=== PATIENT | female | born 1940 | race Caucasian/White ===

== ENCOUNTER → 2019-12-02 14:51 | Outpatient (BNVA) | payer MEDICARE, MEDICAID, SELFPAY | PROVIDERS: Family Provider Internal Medicine; PCP Internal Medicine; Visit Provider Orthopaedic Surgery | DX: Z96.611 Presence of right artificial shoulder joint (principal) | CPT/HCPCS: 73060 ==

== ENCOUNTER → 2019-12-23 16:23 | Outpatient (BNVA) | payer MEDICARE, MEDICAID, SELFPAY | PROVIDERS: Family Provider Internal Medicine; PCP Internal Medicine; Visit Provider Internal Medicine | DX: E03.9 Hypothyroidism, unspecified (principal); K75.4 Autoimmune hepatitis; I25.10 Atherosclerotic heart disease of native coronary artery without angina pectoris; K21.9 Gastro-esophageal reflux disease without esophagitis | CPT/HCPCS: 84443 ==

== ENCOUNTER → 2020-07-31 09:17 | Outpatient (BNVA) | payer MEDICARE, MEDICAID, SELFPAY | PROVIDERS: Family Provider Internal Medicine; PCP Internal Medicine; Visit Provider Nurse Practitioner Family | DX: I10 Essential (primary) hypertension (principal); E78.5 Hyperlipidemia, unspecified; E03.9 Hypothyroidism, unspecified | CPT/HCPCS: 80053; 80061; 84443 ==

== ENCOUNTER → 2020-12-03 14:25 | Outpatient (BNVA) | payer MEDICARE, MEDICAID, SELFPAY | PROVIDERS: Family Provider Internal Medicine; PCP Internal Medicine; Visit Provider Nurse Practitioner Family | DX: Z20.828 Contact with and (suspected) exposure to other viral communicable diseases (principal); R05 Cough | CPT/HCPCS: 87635 ==

== ENCOUNTER → 2021-02-11 10:00 | Outpatient (BNVA) | payer MEDICARE, MEDICAID, SELFPAY | PROVIDERS: Family Provider Internal Medicine; PCP Internal Medicine; Visit Provider Internal Medicine | DX: K75.4 Autoimmune hepatitis (principal); I10 Essential (primary) hypertension; E03.9 Hypothyroidism, unspecified; Z79.899 Other long term (current) drug therapy | CPT/HCPCS: 80053; 82105; 85025; 85651 ==

== ENCOUNTER → 2021-03-01 11:02 | Outpatient (BNVA) | payer MEDICARE, MEDICAID, SELFPAY | PROVIDERS: Family Provider Internal Medicine; PCP Internal Medicine; Visit Provider Internal Medicine | DX: D64.9 Anemia, unspecified (principal) | CPT/HCPCS: 82607; 83550; 85045 ==

== ENCOUNTER → 2021-08-16 13:57 | Outpatient (BNVA) | payer MEDICARE, MEDICAID, SELFPAY | PROVIDERS: Family Provider Internal Medicine; PCP Internal Medicine; Visit Provider Internal Medicine | DX: K75.4 Autoimmune hepatitis (principal); D64.9 Anemia, unspecified | CPT/HCPCS: 80053; 82607; 82746; 83550; 85651 ==

== ENCOUNTER → 2022-06-07 08:59 | Outpatient (BNVA) | payer MEDICARE, MEDICAID, SELFPAY | PROVIDERS: Family Provider Internal Medicine; PCP Internal Medicine; Visit Provider Nurse Practitioner Family | DX: D64.9 Anemia, unspecified (principal); I10 Essential (primary) hypertension; E03.9 Hypothyroidism, unspecified; E78.5 Hyperlipidemia, unspecified; R53.83 Other fatigue; E55.9 Vitamin D deficiency, unspecified | CPT/HCPCS: 80053; 80061; 82306; 82607; 83550; 84443; 85025 ==

== ENCOUNTER → 2022-06-30 13:52 | Outpatient (BNVA) | payer MEDICARE, MEDICAID, SELFPAY | PROVIDERS: Family Provider Internal Medicine; PCP Internal Medicine; Visit Provider Internal Medicine | DX: I25.10 Atherosclerotic heart disease of native coronary artery without angina pectoris (principal); Z78.9 Other specified health status; I10 Essential (primary) hypertension | CPT/HCPCS: 99213 ==

== ENCOUNTER → 2022-08-24 13:12 | Outpatient (BNVA) | payer MEDICARE, MEDICAID, SELFPAY | PROVIDERS: Family Provider Internal Medicine; PCP Internal Medicine; Visit Provider Nurse Practitioner Family | DX: E55.9 Vitamin D deficiency, unspecified (principal) | CPT/HCPCS: 82306 ==

== ENCOUNTER → 2022-12-28 11:11 | Outpatient (BNVA) | payer MEDICARE, MEDICAID, SELFPAY | PROVIDERS: Family Provider Internal Medicine; PCP Internal Medicine; Visit Provider Nurse Practitioner Family | DX: Z79.899 Other long term (current) drug therapy (principal); I10 Essential (primary) hypertension; R53.83 Other fatigue | CPT/HCPCS: 80053; 80061; 82306; 85025 ==

== ENCOUNTER → 2022-12-29 14:57 | Outpatient (BNVA) | payer MEDICARE, MEDICAID, SELFPAY | PROVIDERS: Family Provider Internal Medicine; PCP Nurse Practitioner Family; Visit Provider Internal Medicine | DX: I25.10 Atherosclerotic heart disease of native coronary artery without angina pectoris (principal); Z78.9 Other specified health status; I10 Essential (primary) hypertension | CPT/HCPCS: 99214 ==

== ENCOUNTER → 2023-06-02 10:02 | Outpatient (BNVA) | payer MEDICARE, MEDICAID, SELFPAY | PROVIDERS: Family Provider Internal Medicine; PCP Nurse Practitioner Family; Visit Provider Nurse Practitioner Family | DX: K75.4 Autoimmune hepatitis (principal) | CPT/HCPCS: 85025; 86705; 86706; 86709; 86803; 87340 ==

== ENCOUNTER → 2023-06-29 14:14 | Outpatient (BNVA) | payer MEDICARE, MEDICAID, SELFPAY | PROVIDERS: Family Provider Internal Medicine; PCP Nurse Practitioner Family; Visit Provider Internal Medicine | DX: I25.10 Atherosclerotic heart disease of native coronary artery without angina pectoris (principal); Z78.9 Other specified health status; I10 Essential (primary) hypertension | CPT/HCPCS: 99214 ==

== ENCOUNTER → 2023-07-04 11:54 | Outpatient (BNVA) | payer MEDICARE, MEDICAID, SELFPAY | PROVIDERS: Family Provider Internal Medicine; PCP Nurse Practitioner Family; Visit Provider Nurse Practitioner Family | DX: E55.9 Vitamin D deficiency, unspecified (principal); E03.9 Hypothyroidism, unspecified; D64.9 Anemia, unspecified | CPT/HCPCS: 82306; 84443; 85025 ==

== ENCOUNTER 2023-08-17 09:00 | Outpatient (CLI) | payer MEDICARE, MEDICAID, SELFPAY ==
--- NOTE | 2023-08-17 09:27 | XR_ITS ---
WS: [id number] Chest 2 views, 08/17/2023 Clinical Data: R05.9 - Cough, unspecified Comparison: Portable chest, 03/18/2015 Findings: There is minimal patchy opacity in the periphery of the left upper lobe which could represe nt pneumonia. There is a patchy opacity extending from the left hilum inferiorly into the left lower lobe which could represent atelectasis or pneumonia. No nodules, masses or effusions are seen. The he art is normal. The pulmonary vascularity is not increased. No pneumothorax is seen. There is a hiatal hernia behind the heart. 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 The aortic arch shows calci fication and there is tortuosity of the descending thoracic aorta. There is a reverse right shoulder arthroplasty. There are clips in the right upper quadrant from a cholecystectomy. Impression: 1. Minimal patchy peripheral left opacity in left upper lobe which could represent pneumonia. 2. Patchy opacity extending from the left hilum inferiorly into the left lower lobe which could repre sent atelectasis and/or pneumonia. 3. Eventration of the right diaphragm. 4. Hiatal hernia behind the heart.
--- NOTE | 2023-08-17 09:30 | US_ITS ---
WS: [id number] RIGHT UPPER QUADRANT ULTRASOUND HISTORY: R10.11 - Right upper quadrant pain COMPARISON: 08/12/2011 Liver: 10.3 cm in length. Small shrunken liver. Coarse echotexture throughout with no mass. Surface o f the liver is irregular. Portal Vein: Normal hepatopetal flow with monophasic waveform. Gallbladder: Diffuse gallbladder wall thickening and cholelithiasis. Gallbladder wall measures up to 5.8 mm. Gallbladder wall thickening is probably due to the adjacent ascites and a cirrhotic appearing liver. CBD: 0.3 cm Pancreas: Completely obscured. Right kidney: 10.2 cm in length. Normal size and echogenicity. No hydronephrosis or mass. Aorta and IVC: Unremarkable abdominal aorta and IVC. Moderate amount of ascites within all 4 quadrants. IMPRESSION: 1. Shrunken abnormal liver. Most consistent with cirrhosis. 2. Moderate amount of ascites. 3. Diffuse gallbladder wall thickening is probably related to hepatocellular disease in the ascites. There is also cholelithiasis. 4. No bile duct dilatation.
== END 2023-08-17 09:01 | disposition home or self-care (01) ==
PROVIDERS: PCP Nurse Practitioner Family; Visit Provider Nurse Practitioner Family
DX: R10.11 Right upper quadrant pain (principal); R05.9 Cough, unspecified
CPT/HCPCS: 71046; 76705

== ENCOUNTER → 2023-08-29 11:14 | Outpatient (BNVA) | payer MEDICARE, MEDICAID, SELFPAY | PROVIDERS: PCP Nurse Practitioner Family; Referring Provider Nurse Practitioner Family; Visit Provider Surgery | DX: K80.20 Calculus of gallbladder without cholecystitis without obstruction (principal); K21.9 Gastro-esophageal reflux disease without esophagitis; K75.4 Autoimmune hepatitis; R10.9 Unspecified abdominal pain | CPT/HCPCS: 99203 ==

== ENCOUNTER → 2023-10-17 10:07 | Outpatient (BNVA) | payer MEDICARE, MEDICAID, SELFPAY | PROVIDERS: PCP Nurse Practitioner Family; Visit Provider Nurse Practitioner Family | DX: R10.9 Unspecified abdominal pain (principal); I10 Essential (primary) hypertension; E03.9 Hypothyroidism, unspecified; E78.5 Hyperlipidemia, unspecified | CPT/HCPCS: 80053; 84443 ==

== ENCOUNTER 2023-10-27 12:02 | Outpatient (CLI) | payer MEDICARE, MEDICAID, SELFPAY ==
[2023-10-27] MEDS: iohexol 350 mg/mL 500 mL Btl (per mL) PO (13:07)
--- NOTE | 2023-10-27 13:30 | CT_ITS ---
WS: [id number] CT ABDOMEN WITHOUT CONTRAST HISTORY: R10.9 - Unspecified abdominal pain Contiguous single phase 5 mm axial imaging performed to the abdomen. Oral contrast has been provided. Coronal and sagittal reformats are submitted. All CT scans at [facility] use at least one of these dose optimization techniques: automated exposure control; mA and/or kV adjustment per patient size (includes targeted exams where dose is matched to clinical indication); or iterative reconstruct ion. IV CONTRAST: None Oral contrast: Yes. DLP: 823.61 mGy.cm COMPARISON: 01/15/2019, gallbladder ultrasound 08/17/2023 Lower thorax: Moderate size hiatal hernia. Heart is normal size. Fluid adjacent to the distal esophag us. Liver/biliary system: Shrunken cirrhotic liver. Gallbladder: Cholelithiasis. No evidence for acute cholecystitis Pancreas: Atrophied pancreas. Spleen: Enlarged spleen measuring 15.3 cm in length. Adrenal glands: Normal. Right kidney: Normal. Left kidney: Normal. Aorta: Mild atherosclerosis with no aneurysm. Lymphadenopathy: None. Free fluid: Large amount of ascites throughout the abdomen. There is also mesenteric and soft tissue edema. GI tract: As visualized through the abdomen no obstruction. Abdominal wall: Soft tissue anasarca. Visualized osseous structures: Unremarkable. IMPRESSION: 1. Large amount of ascites noted within the peritoneal cavity of the abdomen. Ascites is new since . A small amount of ascites was identified on the gallbladder ultrasound 08/17/2023. 2. Cirrhotic appearing liver. 3. Diffuse soft tissue edema and anasarca. 4. Splenomegaly. Findings of the portal venous hypertension are present.
== END 2023-10-27 12:03 | disposition home or self-care (01) ==
LOC: RAD 12:03
PROVIDERS: PCP Nurse Practitioner Family; Visit Provider Nurse Practitioner Family
DX: R18.8 Other ascites (principal); R10.9 Unspecified abdominal pain; K80.20 Calculus of gallbladder without cholecystitis without obstruction; R16.1 Splenomegaly, not elsewhere classified; K76.6 Portal hypertension; K74.60 Unspecified cirrhosis of liver
CPT/HCPCS: 74150; Q9967

== ENCOUNTER → 2023-12-25 15:38 | Outpatient (BNVA) | payer MEDICARE, MEDICAID, SELFPAY | PROVIDERS: PCP Nurse Practitioner Family; Visit Provider Nurse Practitioner Family | DX: R53.83 Other fatigue (principal); I10 Essential (primary) hypertension; E03.9 Hypothyroidism, unspecified | CPT/HCPCS: 80053; 84443; 85025 ==

== ENCOUNTER → 2024-01-29 14:00 | Outpatient (BNVA) | payer MEDICARE, MEDICAID, SELFPAY | PROVIDERS: PCP Nurse Practitioner Family; Visit Provider Nurse Practitioner Family | DX: I10 Essential (primary) hypertension (principal) | CPT/HCPCS: 80053 ==

== ENCOUNTER 2024-05-04 09:23 | Inpatient (IN) | payer MEDICARE, MEDICAID, SELFPAY ==
[2024-05-04] VITALS (43 sets, daily range): BP systolic 79–144; BP diastolic 39–76; PULSE 56–90; RESP 15–25; TEMP 35.8–36.4; O2SAT 72–100; BMI 20.5
--- NOTE | 2024-05-04 09:57 | CTR_ITS ---
PROCEDURE INFORMATION: Exam: CT Head Without Contrast Exam date and time: 05/04/2024 10:48 AM Age: 84 years old Clinical indication: Altered mental status/memory loss; Age related cognitive decline; Additional info: AMS TECHNIQUE: Imaging protocol: Computed tomography of the head without contrast. Radiation optimization: All CT scans at this facility use at least one of these dose optimization techniques: automated exposure control; mA and/or kV adjustment per patient size (includes targeted exams where dose is matched to clinical indication); or iterative reconstruction. COMPARISON: No relevant prior studies available. RADIATION DOSE METRICS: Total DLP (mGy-cm): 969.18 FINDINGS: Brain: No acute hemorrhage identified. No large territorial areas of hypoattenuation concerning for ischemic infarct identified. No intracranial mass effect. Mild diffuse cerebral atrophy, consistent with patient's age. Cerebral ventricles: The ventricles are within normal limits. Paranasal sinuses: The visualized sinuses are unremarkable. Mastoid air cells: The visualized mastoid air cells are well aerated. Bones: Unremarkable. No acute fracture. Soft tissues: Unremarkable. CT/CT head wo con* [id number] IMPRESSION: No acute intracranial abnormality.
--- NOTE | 2024-05-04 09:57 | XRR_ITS ---
PROCEDURE INFORMATION: Exam: XR Chest Exam date and time: 05/04/2024 10:51 AM Age: 84 years old Clinical indication: Cough and dyspnea; Additional info: Dyspnea/cough TECHNIQUE: Imaging protocol: Radiologic exam of the chest. Views: 1 view. COMPARISON: 1. CR XR chest 2V* [id number] 08/17/2023 9:[address] abdomen wo con [id number] 10/27/2023 1:02 PM FINDINGS: Lungs: Emphysematous disease. No significant airspace consolidation concerning for pneumonia. Pleural spaces: No pneumothorax. No large pleural effusion. Heart/Mediastinum: Large hiatal hernia again noted. Diaphragm: Mild elevation of the right hemidiaphragm again noted. Bones/joints: Right shoulder arthroplasty noted. XR/XR chest 1V portable [id number] IMPRESSION: 1. Emphysematous disease. 2. No significant airspace consolidation concerning for pneumonia.
--- NOTE | 2024-05-04 10:22 | W.ED.AMS ---
HPI - Altered Mental Status General: Chief Complaint: Altered Mental Status Stated Complaint: loss of appetite, general weakness, incoherence Time Seen by Provider: 05/04/24 09:46 Source: patient and family Mode of arrival: wheelchair History of Present Illness: 84-year-old female presents emergency room generalized weakness and confusion. She will follow simple commands but does not really spontaneously offer answer to questions or provide any history family associated with her provide answers 2 weeks ago she was hospitalized she had significant amount of ascites that was drained she also sounds like she had some congestive heart failure initially she was admitted at [facility] and then was transferred to [facility]. She had a pleural effusion I will treated with a chest tube which was subsequently removed. She had paracentesis according to the daughter who is with her that had taken several liters off the abdomen. She has autoimmune hepatitis she is on spironolactone which was recently increased. MD complaint: altered mental status and confusion Context: liver disease (Autoimmune cirrhosis) Associated symptoms: Deny auditory hallucinations or visual hallucinations Review of Systems Const: Denies: fever(s) or chills Card: Denies: chest pain Resp: Denies: dyspnea GI: Denies: abdominal pain : Denies: dysuria, urinary frequency or urinary urgency Musc: Denies: neck pain or back pain Skin/Breast: Denies: rash Psych: Denies: visual hallucinations or auditory hallucinations [facility] ED PFSH: Medical History Dyspepsia Sinus bradycardia Leg cramps ETD (eustachian tube dysfunction) Arthritis Hyponatremia Closed fracture of proximal end of right humerus with routine healing Anxiety Statin intolerance Essential hypertension GERD (gastroesophageal reflux disease) Hypercholesteremia Hypothyroidism ASHD (arteriosclerotic heart disease) Surgical History Hx of colonoscopy History of right shoulder replacement H/O coronary angioplasty H/O: hysterectomy Family History Other CAD (coronary artery disease) Cancer Family history of premature coronary artery disease Denies family history of Diabetes Clotting disorder Dementia Hyperlipidemia Psychiatric illness Chronic kidney disease (CKD) Suicide Anesthesia complication Bleeding disorder Lung disease Hypertension Stroke Social History Smoking and tobacco/nicotine status: never used tobacco/nicotine Alcohol intake: never Substance/Drug Use: never Physical Exam Const: GENERAL APPEARANCE: cooperative and comfortable ORIENTATION/CONSCIOUSNESS: Yes awake and Yes confused HENMT: COMMON NORMALS: normocephalic, atraumatic and hearing grossly normal bilaterally HEAD & SCALP: normocephalic and atraumatic Resp: COMMON NORMALS: normal respiratory effort, No retractions, No use of accessory muscles and clear to auscultation bilaterally AUSCULTATION: clear to auscultation bilaterally Cardio: COMMON NORMALS: regular rate, regular rhythm and No murmurs present (Cardio) RATE: regular rate RHYTHM: regular rhythm GI: COMMON NORMALS: Soft to palpation and No hepatosplenomegaly present AUSCULTATION: Yes normoactive bowel sounds PALPATION: Yes Soft to palpation, No Tenderness to palpation present (GI), No Guarding due to palpation present (GI) and Yes No hepatosplenomegaly present Extremity: COMMON NORMALS: normal to inspection, capillary refill normal, no clubbing, cyanosis or edema, no calf tenderness and no pedal edema Skin: COMMON NORMALS: no rashes or lesions noted GENERAL SKIN EXAM: no rashes or lesions noted Procedures Central Line Placement Right SC: Patient Placed on Monitor/Pulse Ox: Yes MD Prep: mask, gown and gloves Central Line Prep: Chlorhexidine scrub Local Anesthetic: lidocaine 1% Amount of anesthesia used (mL): 3 Ultrasound Used for Placement: Yes Central Line Lumen Inserted: triple Post Procedure: sutured in place, good blood return, all ports aspirated, flushed, capped and sterile dressing applied Post Procedure X-Ray: tip of catheter in good position and no pneumothorax seen Patient Tolerated Procedure: well Complications: none Procedural Sedation Indication: other (Central line placement patient is encephalopathic) ASA Class: I Preparation: residential monitor applied, pulse oximeter, capnometry used, supplemental O2 applied and suction/airway equipment at bedside Ketamine: IV Ketamine dose (mg): 100 Complications: hypoxia Interventions: oxygen applied and airway repositioned Additional Comments: Patient transiently hypoxic she was in a supine slightly Trendelenburg position for the scheduled while you are about to start she was noted to become hypoxic supplemental oxygen support her airway was repositioned and oropharyngeal airway placed her sats remained normal she did not require any ventilatory assistance. Post procedure recovered without any further hypoxia Course Vital Signs: Vital signs: Vital Signs Temperature 96.5 F L 05/04/24 09:55 Pulse Rate 68 05/04/24 16:00 Respiratory Rate 17 05/04/24 16:00 Blood Pressure 102/50 05/04/24 15:00 Pulse Oximetry 99 05/04/24 16:00 Oxygen Delivery Me thod Room Air 05/04/24 09:55 MDM - Altered Mental Status Medical Decision Making Patient comes in with sepsis uncertain etiology recently she had a thoracentesis. In talking with the family initially thought they also described her having a paracentesis. We later discovered this was not the case they just had a thoracentesis according to the daughter were getting the old records to confirm. She does have known liver disease she has no abdominal distention at this time. Start empiric antibiotics. She has received fluid bolus and cautious to give her any further because she of her recent hospitalization with pleural effusion. She has been started on Levophed Central line was placed after she continued to have hypotension despite fluid bolus. EKG did not show any abnormality ammonia level is normal troponin is trended negative. Claudy Omalley admitted to the ICU Medical Records I reviewed the patient's medical records. Lab Data I reviewed the patient's lab results. 05/04/24 10:35 05/04/24 10:[address] 05/04/24 09:57 IMPRESSION: No acute intracranial abnormality. Abdomen/Pelvis CT 05/04/24 13:20 IMPRESSION: 1. Rectal fecal impaction. 2. Hepatic cirrhosis and splenomegaly. 3. Partially imaged small right pleural effusion. 4. Large hiatus hernia with most of the stomach located within the chest. Also within the hernia multiple soft tissue densities measuring up to 3.5 cm. These soft tissue densities could represent lymphadenopathy but cannot be further characterized on noncontrast imaging. Consider CT abdomen and pelvis with oral and IV contrast. 5. Cholelithiasis but no evidence of cholecystitis. 6. Calcifications projecting over the distal portal vein. A finding of indeterminate clinical significance and can be further evaluated on the recommended CT abdomen and pelvis with oral and IV contrast. 7. Significantly distended urinary bladder. 8. Bulky bilateral inguinal and pelvic sidewall/iliac chain lymphadenopathy. Consider lymphoma. Chest X-Ray 05/04/24 15:47 IMPRESSION: The new right subclavian central venous catheter is in good position. No pneumothorax. Laboratory Results WBC 4.94 10^3/uL (3.29-11.43) 05/04/24 10:35 RBC 3.80 10^6/uL (3.85-5.65) L 05/04/24 10:35 Hgb 14.60 g/dL (11.27-16.99) 05/04/24 10:35 Hct 42.5 % (36-47) 05/04/24 10:35 MCV 111.8 fl (85-98) H 05/04/24 10:35 MCH 38.4 pg (27-33) H 05/04/24 10:35 MCHC 34.4 g/dL (30-55) 05/04/24 10:35 RDW 17.2 % (12.1-15.1) H 05/04/24 10:35 Plt Count 130 10^3/cmm (157-399) L 05/04/24 10:35 MPV 10.1 fL (7.4-10.4) 05/04/24 10:35 Neut % (Auto) 63.0 % 05/04/24 10:35 Lymph % (Auto) 18.8 % 05/04/24 10:35 [place] % (Auto) 16.2 % 05/04/24 10:35 Eos % (Auto) 0.6 % 05/04/24 10:35 Baso % (Auto) 0.6 % 05/04/24 10:35 Neut # (Auto) 3.11 10^3/uL (1.8-7.7) 05/04/24 10:35 Lymph # (Auto) 0.9 10^3/uL (0.8-4.8) 05/04/24 10:35 [place] # (Auto) 0.8 10^3/uL (0.2-0.9) 05/04/24 10:35 Eos # (Auto) 0.0 10^3/uL (0.0-0.8) 05/04/24 10:35 Baso # (Auto) 0.0 10^3/uL (0.0-0.1) 05/04/24 10:35 Nucleated RBC % (auto) 0.6 % 05/04/24 10:35 Nucleated RBCs # 0.0 /100WBC 05/04/24 10:35 PT 14.90 SECONDS (12.1-14.9) 05/04/24 10:35 INR 1.13 (0.8-1.2) 05/04/24 10:35 APTT 27.5 SECONDS (23.9-36.7) 05/04/24 10:35 Sodium 128 mmol/L (136-145) L 05/04/24 10:35 Potassium 4.4 mmol/L (3.5-5.1) 05/04/24 10:35 Chloride 93 mmol/L (98-107) L 05/04/24 10:35 Carbon Dioxide 22 mmol/L (22-29) 05/04/24 10:35 Anion Gap 17.4 (5-19) 05/04/24 10:35 BUN 37 mg/dL (8-23) H 05/04/24 10:35 Creatinine 1.0 mg/dL (0.5-0.9) H 05/04/24 10:35 GFR Calculation Not Reportable 05/04/24 10:35 Glucose 100 mg/dL (65-115) 05/04/24 10:35 Calculated Osmolality 275 mOsm/kg (285-295) L 05/04/24 10:35 Lactic Acid 3.0 mmol/L (0.5-2.2) H 05/04/24 10:35 Lactic Acid (Sepsis) 2.8 mmol/L (0.5-2.2) H 05/04/24 13:37 Calcium 10.8 mg/dL (8.5-10.5) H 05/04/24 10:35 Total Bilirubin 2.9 mg/dL (0.15-1.2) H 05/04/24 10:35 AST 55 U/L (0-32) H 05/04/24 10:35 ALT 18 U/L (0-33) 05/04/24 10:35 Alkaline Phosphatase 99 U/L (35-105) 05/04/24 10:35 Ammonia 28 umol/L (11-51) 05/04/24 10:35 Troponin T Baseline 10 ng/L (0-10) 05/04/24 10:35 Troponin T 120 Minute 9.49 ng/L (0-10) 05/04/24 12:34 Delta Troponin T -0.51 ABS# (0-10) L 05/04/24 12:34 C-Reactive Protein 26.6 mg/L (0.0-4.9) H 05/04/24 10:35 Total Protein 7.9 g/dL (6.6-8.7) 05/04/24 10:35 Albumin 3.0 g/dL (3.5-5.2) L 05/04/24 10:35 Globulin 4.9 g/dL (1.3-4.6) H 05/04/24 10:35 Procalcitonin 0.16 ng/mL (0-0.5) 05/04/24 10:35 Urine Color Yellow (Yellow) 05/04/24 13:04 Urine Appearance Clear (CLEAR) 05/04/24 13:04 Urine pH 6 (5-7) 05/04/24 13:04 Ur Specific [place] 1.020 (1.005-1.030) 05/04/24 13:04 Urine Protein Neg (Negative) 05/04/24 13:04 Urine Glucose (UA) Norm (Normal) 05/04/24 13:04 Urine Ketones Negative (Negative) 05/04/24 13:04 Urine Blood Neg (Negative) 05/04/24 13:04 Urine Nitrate Negative (Negative) 05/04/24 13:04 Urine Bilirubin Neg (Negative) 05/04/24 13:04 Urine Urobilinogen 4 mg/dL (Negative) H 05/04/24 13:04 Ur Leukocyte Esterase Negative (Negative) 05/04/24 13:04 All radiology interpretation(s) finalized by discharge Critical Care Time Critical Care Time: Critical Care Time: Yes Total Critical Care Time: 40 Attestation: The high probability of a clinically significant, sudden or life threatening deterioration of the patient's cardiovascular respiratory sepsis system(s) required my full and direct attention, intervention and personal management. The critical care time is as shown. This time is in addition to time spent performing any reported procedures but includes the following: [x] Data and vital sign review and interpretation [x] Patient assessment, examination and intervention [x] Documentation [x] Medication orders and management Discharge Plan Discharge Patient Disposition: Admitted As Inpatient Admit Provider: Peng Ponce Clinical Impression: Sepsis, Encephalopathy Condition: Stable Coding Level of Care Code ED Security Delivery Specialist for Lela Pierre
--- NOTE | 2024-05-04 10:36 | ECG_ITS ---
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 Measurements Intervals [place] Rate: 69 P: -3 WV: 153 QRS: 18 QRSD: 108 T: -39 QT: 373 QTc: 401 Interpretive Statements SINUS RHYTHM WITH SINUS ARRHYTHMIA NONSPECIFIC T-WAVE ABNORMALITY Compared to ECG 08/16/2019 10:48:22 Sinus bradycardia no longer present T-wave abnormality still present Electronically Signed On 05-04-2024 21:33:13 CDT by Khanh Biggs M.D. [id number]
[2024-05-04 10:43] LABS: Basophils % 0.6 %; Eosinophils % 0.6 %; Hematocrit 42.5 % (36-47); Lymphocytes # 0.9 10^3/uL (0.8-4.8); Lymphocytes % 18.8 %; Mean Corpuscular HGB Conc 34.4 g/dL (30-55); Mean Corpuscular Hemoglobin 38.4 pg (27-33); Mean Corpuscular Volume 111.8 fl (85-98); Mean Platelet Volume 10.1 fL (7.4-10.4); Monocytes # 0.8 10^3/uL (0.2-0.9); Monocytes % 16.2 %; Neutrophils # 3.11 10^3/uL (1.8-7.7); Nucleated Red Blood Cells % 0.6 %; Platelet Count 130 10^3/cmm (157-399); Red Cell Distribution Width 17.2 % (12.1-15.1); White Blood Count 4.94 10^3/uL (3.29-11.43)
[2024-05-04 10:54] LABS: INR 1.13 (0.8-1.2)
[2024-05-04 10:55] LABS: Partial Thromboplastin Time 27.5 SECONDS (23.9-36.7)
[2024-05-04 10:59] LABS: Troponin(5th) Baseline 10 ng/L (0-10)
[2024-05-04 11:00] LABS: Alanine Aminotransferase 18 U/L (0-33); Alkaline Phosphatase 99 U/L (35-105); Aspartate Amino Transferase 55 U/L (0-32); Blood Urea Nitrogen 37 mg/dL (8-23); Calcium 10.8 mg/dL (8.5-10.5); Carbon Dioxide 22 mmol/L (22-29); Chloride 93 mmol/L (98-107); Globulin 4.9 g/dL (1.3-4.6); Glucose 100 mg/dL (65-115); Osmolality Calculated 275 mOsm/kg (285-295); Sodium 128 mmol/L (136-145); Total Bilirubin 2.9 mg/dL (0.15-1.2); Total Protein 7.9 g/dL (6.6-8.7)
[2024-05-04 11:01] LABS: Creatinine Clr Calc Pharmacy 33.9021
[2024-05-04 11:02] LABS: Ammonia 28 umol/L (11-51); Anion Gap 17.4 (5-19); Potassium 4.4 mmol/L (3.5-5.1)
[2024-05-04] MEDS: sodium chloride 0.9% 1,000 ML 999 ML IV (11:40)
--- NOTE | 2024-05-04 11:58 | ECG_ITS ---
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 Measurements Intervals [place] Rate: 65 P: 27 MA: 149 QRS: 24 QRSD: 102 T: -16 QT: 417 QTc: 435 Interpretive Statements SINUS RHYTHM WITH SINUS ARRHYTHMIA NONSPECIFIC T-WAVE ABNORMALITY Compared to ECG 05/04/2024 10:36:18 No significant changes Electronically Signed On 05-04-2024 21:36:43 CDT by Khanh Biggs M.D. [email or web address]
[2024-05-04 12:24] LABS: Reflex Lactate Order REFLEX LACTIC ORDERD
[2024-05-04 12:56] LABS: Troponin 5 2HR 9.49 ng/L (0-10)
[2024-05-04 12:57] LABS: Troponin 5 2HR Delta -0.51 ABS# (0-10)
[2024-05-04 13:12] LABS: Add Urine Microscopic? NO; Charge for UA Resulting for Rev
[2024-05-04 13:13] LABS: Bilirubin Urine Neg (Negative); Blood Urine Neg (Negative); Glucose Urine UA Norm (Normal); Ketones Urine Negative (Negative); Leukocyte Esterase Urine Negative (Negative); Nitrate Urine Negative (Negative); Protein Urine Neg (Negative); Urine Appearance Clear (CLEAR); Urine Color Yellow (Yellow); Urobilinogen Urine 4 mg/dL (Negative); pH Urine 6 (5-7)
--- NOTE | 2024-05-04 13:20 | CTR_ITS ---
PROCEDURE INFORMATION: Exam: CT Abdomen And Pelvis Without Contrast Exam date and time: 05/04/2024 1:57 PM Age: 84 years old Clinical indication: Abdominal pain TECHNIQUE: Imaging protocol: Computed tomography of the abdomen and pelvis without contrast. Radiation optimization: All CT scans at this facility use at least one of these dose optimization techniques: automated exposure control; mA and/or kV adjustment per patient size (includes targeted exams where dose is matched to clinical indication); or iterative reconstruction. COMPARISON: CT abdomen con [id number] 07/01/2023 13:02 RADIATION DOSE METRICS: Total DLP (mGy-cm): 395.27 FINDINGS: Lungs: Old calcified granulomas in the right lower lobe. Pleural spaces: Partially imaged small right pleural effusion. Coronary arteries: Calcified coronary artery disease. Liver: Cirrhotic morphology of the liver (best appreciated on coronal imaging). No focal liver lesion is identified Gallbladder and bile ducts: Cholelithiasis but no CT evidence of cholecystitis. Pancreas: Normal. No ductal dilation. Spleen: Splenomegaly the spleen measures 13.8 cm in craniocaudal dimension. Adrenal glands: The adrenal glands are normal in appearance. Kidneys and ureters: The left kidney is normal in appearance. There is an extrarenal pelvis on the right. No nephroureteral calculi are identified. Stomach and bowel: There is a large hiatus hernia with most of the stomach located within the chest. There are other small soft tissue densities within the hiatus hernia which cannot be further characterized without IV contrast but could represent lymphadenopathy. Rectal fecal impaction. The small bowel loops are not thickened and are nondilated. There is colonic diverticulosis but no evidence of diverticulitis. Appendix: The appendix was not visualized. There are no strandy inflammatory changes surrounding the cecum. Intraperitoneal space: Unremarkable. No free air. No significant fluid collection. Vasculature: Diffuse mural calcifications throughout the abdominal aorta and iliac arteries. Abdominal aorta is nonaneurysmal. Lymph nodes: Old calcified right infrahilar lymph node. Bulky adenopathy in the bilateral inguinal regions. There is bilateral pelvic sidewall/iliac chain lymphadenopathy. Urinary bladder: The urinary bladder is distended. If the patient cannot void than consider James catheter placement. Reproductive: Unremarkable as visualized. Bones/joints: Chronic degenerative changes throughout the spine. No acute osseous lesions are identified. Soft tissues: Unremarkable. Other findings: Calcifications projecting over the expected location of the inferior aspect of the portal vein, finding of indeterminate clinical significance. CT/CT abdomen pelvis wo con [id number] IMPRESSION: 1. Rectal fecal impaction. 2. Hepatic cirrhosis and splenomegaly. 3. Partially imaged small right pleural effusion. 4. Large hiatus hernia with most of the stomach located within the chest. Also within the hernia multiple soft tissue densities measuring up to 3.5 cm. These soft tissue densities could represent lymphadenopathy but cannot be further characterized on noncontrast imaging. Consider CT abdomen and pelvis with oral and IV contrast. 5. Cholelithiasis but no evidence of cholecystitis. 6. Calcifications projecting over the distal portal vein. A finding of indeterminate clinical significance and can be further evaluated on the recommended CT abdomen and pelvis with oral and IV contrast. 7. Significantly distended urinary bladder. 8. Bulky bilateral inguinal and pelvic sidewall/iliac chain lymphadenopathy. Consider lymphoma.
--- NOTE | 2024-05-04 13:25 | PM.HP ---
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 Patient's son and daughter bedside and provide the history. Patient severely encephalopathic. She is oriented to her name and date of ; otherwise is not oriented to time, place, or situation. She has been staying with his son for the past week. She has been living with the daughter prior to that but she was on vacation to [place] this week. Son reports for the past week, she has become increasingly more somnolent, weaker, more confused. He reports very poor oral intake. States she is complained about abdominal pains. They report for the past 3 days symptoms just have progressively gotten significantly worse. She did have a fall this week where she hit and bruised her knee. She typically walks with a walker. 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 A chest tube was placed for drainage. It somewhat unclear how much was eventually drained but at least 7 L per daughter. She was there for 6 days and then transferred to [facility] in [place] for pulmonary and CT surgery evaluation. Ultimately, she did not require any pleurodesis or thoracotomy. The chest tube was removed due to worsening hypoalbuminemia. She was treated with albumin and eventually improved. She was discharged after 2 additional weeks to rehab. She was there less than a week and then went home with her daughter. At the time of discharge this was around February 15. Since that time she has remained somewhat weak and has had some intermittent confusion but nothing to the degree that she currently has. In the emergency department, patient was found to be encephalopathic. The ED course was complicated by the development of shock. Central line was placed and she was started on Levophed after she remained hypotensive despite sepsis dose IV bolusing. Family notes she has complained of intermittent abdominal pains recently and has a very poor oral intake. They have encouraged her to eat but she has been reluctant. Daughter notes that she has a longstanding known hiatal hernia. This hiatal hernia was redemonstrated on CT scan today as well as significant lymphadenopathy. They reports that she did have swollen lymph nodes around her ear which they initially just attributed to an ear infection. Patient is unable to provide further history due to her severe encephalopathy. Further history obtained from chart review. Will get obtain outside records as well. Review of Systems Narrative: A complete review of systems was obtained and is negative except as stated in HPI. Medications/Allergies Home Medications Medication Instructions Recorded Confirmed Last Taken Type cholecalciferol (vitamin D3) 1,250 50,000 unit PO .weekly #12 caps 08/24/22 02/19/24 Unknown Rx mcg (50,000 unit) capsule pantoprazole 40 mg tablet,delayed 40 mg PO BID 6 weeks #84 tabs 08/29/23 02/19/24 Unknown Rx release azathioprine 50 mg tablet See Rx Instructions .Route 01/29/24 02/19/24 Unknown Rx .COMPLEX #90 tabs midodrine 2.5 mg tablet 2.5 mg PO .every 8 hours 02/19/24 02/19/24 Unknown History polyethylene glycol 3350 17 4 g PO BID 02/19/24 02/19/24 Unknown History gram/dose oral powder furosemide 20 mg tablet (Lasix) 40 mg (2 x 20 mg) PO DAILY #90 tabs 03/12/24 Unknown Rx metoprolol succinate 50 mg 50 mg PO DAILY #90 tabs 04/08/24 Unknown Rx tablet,extended release 24 hr levothyroxine 25 mcg tablet See Rx Instructions .Route 04/19/24 Unknown Rx .COMPLEX #90 tabs spironolactone 50 mg tablet 100 mg (2 x 50 mg) PO DAILY #90 04/19/24 Unknown Rx tabs Allergies Allergy/AdvReac Type Severity Reaction Status Date / Time codeine Allergy Unknown Verified 02/19/24 13:41 PFSH Acute PFSH: Medical History Dyspepsia Sinus bradycardia Leg cramps ETD (eustachian tube dysfunction) Arthritis Hyponatremia Closed fracture of proximal end of right humerus with routine healing Anxiety Statin intolerance Essential hypertension GERD (gastroesophageal reflux disease) Hypercholesteremia Hypothyroidism ASHD (arteriosclerotic heart disease) Surgical History Hx of colonoscopy History of right shoulder replacement H/O coronary angioplasty H/O: hysterectomy Family History Other CAD (coronary artery disease) Cancer Family history of premature coronary artery disease Denies family history of Diabetes Clotting disorder Dementia Hyperlipidemia Psychiatric illness Chronic kidney disease (CKD) Suicide Anesthesia complication Bleeding disorder Lung disease Hypertension Stroke Social History Smoking and tobacco/nicotine status: never used tobacco/nicotine Alcohol intake: never Substance/Drug Use: never Vitals/I&O/Wt Last Vital Signs Temp 96.5 F L 05/04/24 09:55 Pulse 78 05/04/24 09:55 Resp 18 05/04/24 09:55 BP 100/53 05/04/24 12:30 Pulse Ox 100 05/04/24 12:30 O2 Del Method Room Air 05/04/24 09:55 05/03/24 05/04/24 05/04/24 22:59 06:59 14:59 Intake Total 1000 / 1000 Balance 1000 / 1000 Weight last 48 hrs Weight 50.802 kg Physical Exam Narrative: General: Patient is awake. Oriented to name and date. Encephalopathic Head: Normocephalic. Atraumatic. EOM intact. Neck: No JVD. Cardiovascular: RRR. No gallops. No murmurs. Lungs: Breath sounds are slightly diminished, no use of accessory muscles, no crackles or wheezes. Skin: No jaundice. No rashes. Abdomen: Normal bowel sounds, abdomen soft and nontender. Genito Urinary: Genital exam not performed since complaints not related. Rectal: Rectal exam not performed since no symptoms indicated blood loss. Extremities: No cyanosis or clubbing. Musculoskeletal: Knee with significant bruising. Neurological: Moves all 4 extremities. No myoclonus. Data 05/04/24 10:35 05/04/24 10:35 Micro: Microbiology 05/04/24 10:33 Blood Culture - Preliminary Blood SPECIMEN COLLECTED 05/04/24 10:35 Blood Culture - Preliminary Blood SPECIMEN COLLECTED A&P Assessment and plan (1) Septic shock: Septic shock Status post IV fluid bolus with persistent shock Source somewhat unclear, possibly intra-abdominal Lactic acidosis noted Panculture CT imaging reviewed Starting Levophed for MAP goal of 65 mmHg Start broad-spectrum antibiotics with vancomycin and cefepime MRSA swab Inflammatory markers Telemetry Strict I's and O's (2) Cirrhosis of liver: History of decompensated liver cirrhosis with history of ascites Daughter does not believe she is ever required a paracentesis History highly suggestive of hepatic hydrothorax She does not have fluid wave on exam, she appears dry Hepatic encephalopathy within differential although ammonia levels unremarkable They report outside ammonia level was drawn at [facility] about a month ago Will see if we can obtain records Qualifiers: Hepatic cirrhosis type: secondary biliary cirrhosis Qualified Code(s): 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 Kaufman Hold home regiment given sepsis (4) Renal insufficiency: Patient reports she has had problems with her kidneys previously this year She was referred to nephrology with Dr. Rowland in [place] They report no medication changes at that time They are unsure of her recent baseline She status post IV fluid resuscitation and is on Levophed Strict I's and O's Daily weights Urinalysis reviewed (5) Pleural effusion: Pleural effusions currently small Continue to monitor (6) Hypothyroidism: Check TSH Will plan to continue home dose after home med list is updated Plan DVT prophylaxis: Heparin CODE STATUS: Full code, discussed with family Attestations Medical Necessity Statement*: Patient presents with altered mental status, found to have severe encephalopathy and septic shock requiring admission to the intensive care unit for IV vasopressors, IV antibiotics, and supportive care. Critical Care Time: The high probability of a clinically significant, sudden or life threatening deterioration of the patient's neurologic, renal, cardiovascular system(s) required my full and direct attention, intervention and personal management. The critical care time is as shown. This time is in addition to time spent performing any reported procedures but includes the following: [x] Data and vital sign review and interpretation [x] Patient assessment, examination and intervention [x] Documentation [x] Medication orders and management Critical Care Time (min): 60 Coding Level of Care Code Acute Code for Chg Fwd Diagnoses Septic shock A41.9; R65.21 Secondary biliary cirrhosis K74.4 Hepatic cirrhosis type: secondary biliary cirrhosis Autoimmune hepatitis K75.4 Renal insufficiency N28.9 Pleural effusion J90 Hypothyroidism E03.9
[2024-05-04] MEDS: sodium chloride 0.9% 1,503 ML 1503 ML IV (13:50)
[2024-05-04] MEDS: cefTRIAXone 2,000 MG in sodium chloride 0.9% (plus) 50 ML 100 MG IV (13:51)
[2024-05-04 14:02] LABS: Lactic Acid level (Lactate) 2.8 mmol/L (0.5-2.2)
[2024-05-04 15:39] LABS: C Reactive Protein 26.6 mg/L (0.0-4.9)
[2024-05-04 15:47] LABS: Procalcitonin 0.16 ng/mL (0-0.5)
--- NOTE | 2024-05-04 15:47 | XRR_ITS ---
PROCEDURE INFORMATION: Exam: XR Chest Exam date and time: 05/04/2024 3:58 PM Age: 84 years old Clinical indication: Device placement; Other: Central line placement TECHNIQUE: Imaging protocol: Radiologic exam of the chest. Views: 1 view. COMPARISON: CR (CHEST, ) 04/05/2024 10:51 FINDINGS: Tubes, catheters and devices: There is a right subclavian central venous catheter with the distal tip in good position in the proximal right atrium. Lungs: Unremarkable. No consolidation. Pleural spaces: Unremarkable. No pleural effusion. No pneumothorax. Heart/Mediastinum: Unremarkable. No cardiomegaly. Bones/joints: There is a right shoulder prosthesis. XR/XR chest 1V portable [id number] IMPRESSION: The new right subclavian central venous catheter is in good position. No pneumothorax.
--- NOTE | 2024-05-04 15:58 | ECG_ITS ---
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 Measurements Intervals [place] Rate: 64 P: 10 VA: 157 QRS: 22 QRSD: 100 T: -67 QT: 401 QTc: 414 Interpretive Statements SINUS RHYTHM NONSPECIFIC T-WAVE ABNORMALITY Compared to ECG 05/04/2024 12:36:13 Sinus arrhythmia no longer present T-wave abnormality still present Electronically Signed On 05-04-2024 21:35:42 CDT by Khanh Biggs M.D. [email or web address]
[2024-05-04] MEDS: norepinephrine 4 MG/250 ML BAG 30 MG IV (16:38)
[2024-05-04] MEDS: ketamine 100 mg/mL Inj 5 mL 200 MG IVP (16:39)
[2024-05-04] MEDS: sodium chloride 0.9% 1,000 ML 100 ML IV (17:32)
[2024-05-04] MEDS: heparin 5,000 unit/mL INJ 1 mL 5000 UNIT SUBCUT (17:38)
[2024-05-04 18:06] LABS: Troponin 5 6HR 9.83 ng/L (0-10); Troponin 5 6HR Delta -0.17 ng/L (0-12)
[2024-05-04] MEDS: vancomycin 750 MG in sodium chloride 0.9% 250 ML 250 MG IV (18:38)
[2024-05-04] MEDS: cefepime 2,000 MG in sodium chloride 0.9% (plus) 50 ML 100 MG IV (18:38)
--- NOTE | 2024-05-04 18:57 | PC.NURSE ---
Patient has large bruise covering right knee from a fall at home, small bruising on left knee. Patient had surgery on right shoulder and has a faint scar, reports pain to family in that shoulder. Medial sacrum redness, blanchable, does have pressure injury stage two measuring approximately 10mm by 20mm. Patient does not report any pain to me. No belongings upon arrival to ICU with patient. Patient opens eyes spontaneously, AMS, room air, daughter and son at bedside to answer admission questions. See charted vitals and MAR for medication administrations.
[2024-05-04 20:02] LABS: Thyroid Stimulating Hormone 3.39 uIU/mL (0.27-4.20)
[2024-05-05] VITALS (101 sets, daily range): BP systolic 84–129; BP diastolic 43–89; PULSE 53–95; RESP 15–40; TEMP 36.7–37.3; O2SAT 90–96
[2024-05-05 04:07] LABS: Basophils % 0.5 %; Eosinophils # 0.1 10^3/uL (0.0-0.8); Eosinophils % 0.6 %; Hematocrit 34.8 % (36-47); Lymphocytes # 1.4 10^3/uL (0.8-4.8); Lymphocytes % 17.8 %; Mean Corpuscular HGB Conc 34.8 g/dL (30-55); Mean Corpuscular Hemoglobin 38.4 pg (27-33); Mean Corpuscular Volume 110.5 fl (85-98); Mean Platelet Volume 9.5 fL (7.4-10.4); Monocytes # 1.5 10^3/uL (0.2-0.9); Monocytes % 18.6 %; Neutrophils # 4.83 10^3/uL (1.8-7.7); Neutrophils % 61.7 %; Nucleated Red Blood Cells % 0.4 %; Platelet Count 152 10^3/cmm (157-399); Red Blood Count 3.15 10^6/uL (3.85-5.65); Red Cell Distribution Width 17.2 % (12.1-15.1); White Blood Count 7.83 10^3/uL (3.29-11.43)
[2024-05-05 04:26] LABS: Alanine Aminotransferase 16 U/L (0-33); Albumin Level 2.6 g/dL (3.5-5.2); Alkaline Phosphatase 84 U/L (35-105); Anion Gap 15.2 (5-19); Aspartate Amino Transferase 44 U/L (0-32); Blood Urea Nitrogen 34 mg/dL (8-23); Calcium 9.6 mg/dL (8.5-10.5); Carbon Dioxide 21 mmol/L (22-29); Chloride 101 mmol/L (98-107); Creatinine Clr Calc Pharmacy 42.3776; Globulin 4.1 g/dL (1.3-4.6); Glucose 97 mg/dL (65-115); Magnesium 2.1 mg/dL (1.7-2.3); Osmolality Calculated 284 mOsm/kg (285-295); Phosphorus 3.2 mg/dL (2.5-4.5); Potassium 4.2 mmol/L (3.5-5.1); Sodium 133 mmol/L (136-145); Total Bilirubin 2.1 mg/dL (0.15-1.2); Total Protein 6.7 g/dL (6.6-8.7)
[2024-05-05] MEDS: heparin 5,000 unit/mL INJ 1 mL 5000 UNIT SUBCUT ×2 (05:09→17:31)
[2024-05-05] MEDS: cefepime 2,000 MG in sodium chloride 0.9% (plus) 50 ML 100 MG IV ×2 (05:14→17:31)
[2024-05-05] MEDS: norepinephrine 4 MG/250 ML BAG 15 MG IV (05:15)
[2024-05-05] MEDS: HYDROmorphone 1 mg/mL INJ 1 mL 0.200000000000000011 MG IVP ×3 (10:43→21:07)
--- NOTE | 2024-05-05 12:14 | CTR_ITS ---
PROCEDURE INFORMATION: Exam: CT Chest With Contrast; Diagnostic Exam date and time: 05/05/2024 2:19 PM Age: 84 years old Clinical indication: Other: Evaluate for infection, lymphadenopathy, septic shock TECHNIQUE: Imaging protocol: Diagnostic computed tomography of the chest with contrast. Radiation optimization: All CT scans at this facility use at least one of these dose optimization techniques: automated exposure control; mA and/or kV adjustment per patient size (includes targeted exams where dose is matched to clinical indication); or iterative reconstruction. Contrast material: [id number]; Contrast volume: 100 ml; Contrast route: INTRAVENOUS (IV); COMPARISON: CR (CHEST, ) 04/05/2024 15:58 RADIATION DOSE METRICS: Total DLP (mGy-cm): 719.84 FINDINGS: Thyroid: There are small hypodense lesions in each lobe of the thyroid, the largest measuring about 9 mm on the right. These lesions do not appear to have suspicious features by CT. Lungs: There is right lower lobe consolidation most likely representing atelectasis. There are old calcified granulomas in the right lower lobe. The left lung is essentially clear. The right upper lung is clear. Pleural spaces: There is a large right pleural effusion which has significantly increased in size when compared to prior imaging. Trace left pleural effusion. Heart: Unremarkable. No cardiomegaly. No pericardial effusion. Coronary arteries: Extensive calcified coronary artery disease. Lymph nodes: There is bulky cervical lymphadenopathy, supraclavicular adenopathy and axillary adenopathy. There are large posterior mediastinal masses adjacent to the stomach which is herniated into the chest the findings suggest gastrohepatic lymphadenopathy which is now located in the chest within the large hiatus hernia. Vasculature: Unremarkable. No aortic aneurysm. Bones/joints: Partially imaged right shoulder arthroplasty. No acute thoracic osseous lesions. Soft tissues: Unremarkable. PROCEDURE INFORMATION: Exam: CT Abdomen And Pelvis With Contrast Exam date and time: 05/05/2024 2:19 PM Age: 84 years old Clinical indication: Other: Evaluate for infection, lymphadenopathy, septic shock TECHNIQUE: Imaging protocol: Computed tomography of the abdomen and pelvis with contrast. Radiation optimization: All CT scans at this facility use at least one of these dose optimization techniques: automated exposure control; mA and/or kV adjustment per patient size (includes targeted exams where dose is matched to clinical indication); or iterative reconstruction. Contrast material: [id number]; Contrast volume: 100 ml; Contrast route: INTRAVENOUS (IV); COMPARISON: CT abdomen pelvis [facility] [id number] 04/05/2024 13:57 RADIATION DOSE METRICS: Total DLP (mGy-cm): 719.84 FINDINGS: Liver: Hepatic cirrhosis. No focal liver lesion is identified. Gallbladder and bile ducts: Cholelithiasis but no CT evidence of acute cholecystitis. Pancreas: The pancreas is normal in appearance. No evidence of pancreatic ductal dilatation. Spleen: Stable splenomegaly. Adrenal glands: The adrenal glands are normal in appearance. Kidneys and ureters: The kidneys are normal in appearance. No evidence of hydronephrosis or hydroureter. No nephroureteral calculi are identified. Stomach and bowel: There is a significant rectal fecal impaction. Colonic diverticulosis but no evidence of diverticulitis. No evidence of a bowel obstruction. There appears to be mild mural thickening of the small bowel. Appendix: No evidence of appendicitis. Intraperitoneal space: Mild edema throughout the mesentery. Small volume ascites. Vasculature: There is partial thrombosis of the portal vein. The portal vein is not completely thrombosed as there is some IV contrast seen within the main portal vein. The intrahepatic portal veins are unremarkable. Lymph nodes: There is retroperitoneal lymphadenopathy, bulky pelvic sidewall lymphadenopathy and bulky bilateral inguinal adenopathy. Multiple small lymph nodes in the breezy hepatis. Urinary bladder: The urinary bladder is mostly decompressed by a James catheter. Reproductive: Unremarkable as visualized. Bones/joints: No acute osseous lesions. Stable chronic degenerative changes in the lower lumbar spine. Soft tissues: Unremarkable. CT/CT chest abdpel w/*[id number] IMPRESSION: 1. Bulky lymphadenopathy in the lower cervical and supraclavicular regions, bilateral axilla and posterior mediastinum. The findings are concerning for lymphoma. 2. There is now a large right pleural effusion. The right pleural effusion was significantly smaller on yesterday's exam. 3. Large hiatus hernia with a significant portion of the stomach located within the chest. The soft tissue mass within the hiatus hernia seen on noncontrast imaging yesterday appears to represent bulky gastrohepatic lymphadenopathy dragged into the chest. 4. Extensive calcified coronary artery disease. IMPRESSION: 1. Bulky lymphadenopathy in the gastrohepatic region, breezy hepatis, retroperitoneum, pelvic sidewall and bilateral inguinal regions. The findings are concerning for lymphoma. 2. Large hiatus hernia. Please see CT chest report. 3. Significant rectal fecal impaction. 4. Hepatic cirrhosis and splenomegaly. 5. Cholelithiasis but no suggestion of cholecystitis. 6. Small volume ascites and mild mesenteric edema. 7. Partial thrombosis of the portal vein. 8. Query mild mural thickening of the small bowel.
[2024-05-05] MEDS: iohexol 350 mg/mL 500 mL Btl (per mL) IV (14:26)
[2024-05-05 14:54] LABS: Vitamin B12 > 2000 pg/mL (232-1245)
[2024-05-05] MEDS: norepinephrine 4 MG/250 ML BAG 22.5 MG IV (15:49)
[2024-05-05] MEDS: mineral oil ENEMA 133 mL PR (16:00)
--- NOTE | 2024-05-05 16:56 | P.PN_ITS ---
Subjective 2 Subjective: Patient is in a stuporous state. She was apparently moaning earlier this morning. Her mentation is worse than yesterday. Her Levophed requirements have improved. Renal function has improved. I met with her son bedside. Advised we proceed with further CT imaging with contrast to further evaluate noncontrast CT findings today. Due to patient's stuporous state, further history could not be obtained from her. Medications: Reviewed: Yes Vitals/I&O/Wt Last Vital Signs Temp 98.2 F 05/05/24 13:00 Pulse 88 05/05/24 16:45 Resp 26 H 05/05/24 16:45 BP 111/60 05/05/24 16:45 Pulse Ox 91 05/05/24 16:45 O2 Del Method Room Air 05/05/24 16:45 05/05/24 05/05/24 05/05/24 06:59 14:59 22:59 Intake Total 202.875 / 3365.500 . / . 187.125 / 203.375 Output Total 350 / 1350 Balance -147.125 / 2015.500 16. / . 187.125 / 203.375 Weight last 48 hrs Weight 54.386 kg Weight 50.802 kg Weight 50.802 kg Physical Exam 2 Narrative: General: Patient is in a stuporous state. Head: Atraumatic. Neck: No JVD. Cardiovascular: RRR. No gallops. No murmurs. In shock on Levophed. Lungs: Breath sounds are more diminished in right. No wheeze or crackles. Skin: No jaundice. No rashes. Abdomen: Normal bowel sounds, abdomen soft and nontender. Genito Urinary: Catheter Extremities: No cyanosis or clubbing. Musculoskeletal: Knee with significant bruising. Neurological: In stuporous state. No myoclonus. Urinary Catheter Management: James: Cath Placed During This Visit: yes Reason for Continuing Indwelling Catheter: Accurate Measurement of Urinary Output in Critically Ill Patients Urinary Catheter Date of Insertion: 05/04/24 Data 05/05/24 03:56 05/05/24 03:56 Micro: Microbiology 05/04/24 10:33 Blood Culture - Preliminary Blood NEGATIVE TO DATE 05/04/24 10:35 Blood Culture - Preliminary Blood NEGATIVE TO DATE A&P Assessment and plan (1) Septic shock: Septic shock Source somewhat unclear, possibly intra-abdominal Follow cultures Continue Levophed, titrated to MAP goal of 65 mmHg Continue vancomycin and cefepime (05/04-present) MRSA swab pending Telemetry Strict I's and O's Proceed with CT chest/abdomen/pelvis with IV contrast If significant lymphadenopathy is confirmed, she will likely need biopsy, consider IR consult versus general surgery pending imaging results (2) Cirrhosis of liver: History of decompensated liver cirrhosis with history of ascites Daughter does not believe she is ever required a paracentesis History highly suggestive of hepatic hydrothorax Ammonia levels normal on admission Lasix/Aldactone on hold due to shock Home midodrine is on hold she is on Levophed Still awaiting outside records Qualifiers: Hepatic cirrhosis type: secondary biliary cirrhosis Qualified Code(s): 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 Kaufman Hold home regiment given sepsis and inability to take oral intake (4) Renal insufficiency: Patient reports she has had problems with her kidneys previously this year She was referred to nephrology with Dr. Rowland in [place] Strict I's and O's Daily weights Renal function has improved, will proceed with contrast study today (5) Pleural effusion: Pleural effusions currently small on admission, repeat imaging ordered as noted above Continue to monitor (6) Hypothyroidism: TSH within normal limits She is unable to take her oral Synthroid, could consider IV Synthroid if mentation does not improve (7) Fecal impaction: Son reports she did have a bowel movement within the past week Imaging consistent with fecal impaction She will be able to take oral bowel regiment given her severe encephalopathy Proceed with enema today monitor response Plan DVT prophylaxis: Heparin CODE STATUS: Full code, discussed with family Attestations 2 Medical Necessity Statement*: Patient requires ongoing hospitalization for further imaging, IV antibiotics, serial labs, vasopressors, and intensive care Critical Care Time: The high probability of a clinically significant, sudden or life threatening deterioration of the patient's cardiovascular, neuro, renal, GI system(s) required my full and direct attention, intervention and personal management. The critical care time is as shown. This time is in addition to time spent performing any reported procedures but includes the following: [x] Data and vital sign review and interpretation [x] Patient assessment, examination and intervention [x] Documentation [x] Medication orders and management Critical Care Time (min): 45 Coding Level of Care Code Acute Code for Chg Fwd Diagnoses Septic shock A41.9; R65.21 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
[2024-05-05] MEDS: vancomycin 750 MG in sodium chloride 0.9% 250 ML 250 MG IV (18:09)
[2024-05-06] VITALS (97 sets, daily range): BP systolic 88–121; BP diastolic 46–72; PULSE 86–108; RESP 12–33; TEMP 36.3–36.9; O2SAT 90–97
[2024-05-06 04:06] LABS: Basophils % 0.7 %; Eosinophils % 0.4 %; Hematocrit 32.8 % (36-47); Lymphocytes # 1.1 10^3/uL (0.8-4.8); Mean Corpuscular HGB Conc 33.8 g/dL (30-55); Mean Corpuscular Hemoglobin 38.4 pg (27-33); Mean Corpuscular Volume 113.5 fl (85-98); Mean Platelet Volume 9.9 fL (7.4-10.4); Monocytes # 0.9 10^3/uL (0.2-0.9); Monocytes % 19.9 %; Neutrophils # 2.52 10^3/uL (1.8-7.7); Neutrophils % 55.1 %; Nucleated Red Blood Cells % 0 %; Platelet Count 91 10^3/cmm (157-399); Positive M 1; Red Blood Count 2.89 10^6/uL (3.85-5.65); Red Cell Distribution Width 17.4 % (12.1-15.1); White Blood Count 4.57 10^3/uL (3.29-11.43)
[2024-05-06 04:31] LABS: Procalcitonin 0.15 ng/mL (0-0.5)
[2024-05-06 04:33] LABS: Alanine Aminotransferase 15 U/L (0-33); Albumin Level 2.4 g/dL (3.5-5.2); Alkaline Phosphatase 78 U/L (35-105); Anion Gap 14.3 (5-19); Aspartate Amino Transferase 40 U/L (0-32); Blood Urea Nitrogen 30 mg/dL (8-23); Carbon Dioxide 19 mmol/L (22-29); Chloride 106 mmol/L (98-107); Creatinine Clr Calc Pharmacy 43.5835; Glucose 91 mg/dL (65-115); Magnesium 2.1 mg/dL (1.7-2.3); Osmolality Calculated 286 mOsm/kg (285-295); Phosphorus 3.5 mg/dL (2.5-4.5); Potassium 4.3 mmol/L (3.5-5.1); Sodium 135 mmol/L (136-145); Total Protein 6.4 g/dL (6.6-8.7)
[2024-05-06 04:34] LABS: Ammonia 44 umol/L (11-51)
[2024-05-06] MEDS: cefepime 2,000 MG in sodium chloride 0.9% (plus) 50 ML 100 MG IV ×2 (05:23→17:41)
[2024-05-06] MEDS: heparin 5,000 unit/mL INJ 1 mL 5000 UNIT SUBCUT (05:24)
--- NOTE | 2024-05-06 07:26 | PC.NURSE ---
Late entry note: Performed enema as documented in 05/05/2024, no results noted on remainder of my shift and no results per table games shift manager report.
[2024-05-06] MEDS: pantoprazole 40 mg SDV IVP (08:22)
--- NOTE | 2024-05-06 08:56 | PC.PHAR ---
PT STATES DOES NOT KNOW WHAT SHE TAKES. DAUGHTERSIA VERIFIED MEDICATIONS BY PHONE.
[2024-05-06] MEDS: lanolin oint 7 gm 1 APPLIC TOPICAL (09:00)
--- NOTE | 2024-05-06 10:45 | PC.NURSE ---
Levophed off in room at start of shift, shift mechanic reported levophed off at 2230. MAR updated to reflect pause.
[2024-05-06] MEDS: HYDROmorphone 1 mg/mL INJ 1 mL 0.200000000000000011 MG IVP ×3 (10:54→22:36)
--- NOTE | 2024-05-06 11:34 | PC.NURSE ---
Dr. Joaquin spoke with Rod Bustamante, patients son at bedside about Code Status. Decision was made for do DO NOT RESUSCITATE AND DO NOT INTUBATE. Verbal order from Dr. Joaquin entered for Allow Natural .
[2024-05-06 12:19] LABS: Platelet Count 84 10^3/cmm (157-399)
[2024-05-06 12:45] LABS: INR 1.27 (0.8-1.2)
[2024-05-06 12:47] LABS: Fibrinogen 173 mg/dL (174-498); Partial Thromboplastin Time 64.7 SECONDS (23.9-36.7)
[2024-05-06 13:14] LABS: Methicillin-Resist S.aureu PCR NOT DETECTED (NOT DETECTED)
--- NOTE | 2024-05-06 14:03 | P.PN_ITS ---
Subjective 2 Subjective: This morning patient was evaluated, she is moaning in pain, grunting, open eyes but does not talk, looks extremely dehydrated malnourished sarcopenia Had a detailed discussion with the son at the bedside regarding possible lymphoma and indication for biopsy I also requested thoracentesis Son after discussing with his sister decided to not pursue lymph node biopsy or thoracentesis change CODE STATUS to DNR/DNI as well ICU nurse updated They might lean towards hospice care however not ready to discuss that yet Case management updated Levophed was turned off this morning MAP around 66 mmHg Vitals/I&O/Wt Last Vital Signs Temp 98.1 F 05/06/24 12:00 Pulse 97 05/06/24 14:02 Resp 19 H 05/06/24 13:45 BP 108/53 05/06/24 13:45 Pulse Ox 93 05/06/24 13:45 O2 Del Method Room Air 05/06/24 13:45 05/05/24 05/06/24 05/06/24 22:59 06:59 14:59 Intake Total 582.250 / 598.500 0 / 598.500 157.875 / 157.875 Output Total 30 / 30 400 / 430 Balance 552.250 / 568.500 -400 / 168.500 157.875 / 157.875 Weight last 48 hrs Weight 55.137 kg Weight 55.139 kg Weight 54.386 kg Weight 50.802 kg Physical Exam 2 Narrative: Oriented to herself Open eyes to intermittently Not able to follow commands Moans and groans in pain Blood pressure on softer side off Levophed this morning Currently on room air Abdomen is nontender Lower extremity no significant edema S1, S2 sinus rhythm Urinary Catheter Management: James: Cath Placed During This Visit: yes Reason for Continuing Indwelling Catheter: Accurate Measurement of Urinary Output in Critically Ill Patients Urinary Catheter Date of Insertion: 05/04/24 Data 05/06/24 11:28 05/06/24 03:45 Micro: Microbiology 05/04/24 10:33 Blood Culture - Preliminary Blood NEGATIVE TO DATE 05/04/24 10:35 Blood Culture - Preliminary Blood NEGATIVE TO DATE A&P Assessment and plan (1) Septic shock: Septic shock Likely SBP Patient is still encephalopathic family had decided against lymph node biopsy, thoracentesis any invasive procedures at this point (2) Cirrhosis of liver: History of decompensated liver cirrhosis with history of ascites Qualifiers: Hepatic cirrhosis type: secondary biliary cirrhosis Qualified Code(s): 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 Kaufman Not on steroids (4) Renal insufficiency: Improved (5) Pleural effusion: Family decided against thoracentesis, currently she is on room air (6) Hypothyroidism: TSH within normal limits (7) Fecal impaction: Continue bowel regimen Plan DVT prophylaxis: Heparin on hold will use SCDs, thrombocytopenia noted likely related to portal hypertension CODE STATUS goals of care change, DNR/DNI They are leaning towards hospice care if she does not get better or start drinking or eating on her own Attestations 2 Medical Necessity Statement*: Continue ICU management Diagnoses Septic shock A41.9; R65.21 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
--- NOTE | 2024-05-06 14:46 | PC.SOCIAL ---
IMM Updated Updated pt's son on IMM. No questions voiced. Provided pt a copy. Initialed, dated, & timed a copy & placed in chart.
--- NOTE | 2024-05-06 16:36 | US_ITS ---
WS: [id number] Ultrasound chest, RIGHT. HISTORY: Evaluate pleural effusion. COMPARISON: Chest CT 05/05/2024. There is a moderate-sized RIGHT pleural effusion with a soft tissue mass noted centrally in the effus ion. Mass was also noted on a prior CT. There is atelectatic lung through the effusion. US/US chest [id number] IMPRESSION: Moderate size RIGHT pleural effusion.
--- NOTE | 2024-05-06 16:38 | US_ITS ---
WS: [id number] INDICATION: Lymphadenopathy TECHNIQUE: Ultrasound neck cervical FINDINGS: Multiple enlarged LEFT cervical chain and supraclavicular lymph nodes as seen on the recent CT. Largest LEFT supraclavicular lymph nodes measure 2.3 x 2.1 cm RIGHT side not imaged due to PICC line. US/US soft tissue/extremity [id number] IMPRESSION: See above
[2024-05-06] MEDS: vancomycin 750 MG in sodium chloride 0.9% 250 ML 250 MG IV (17:38)
[2024-05-06] MEDS: lactulose oral liq 20 gm/30 mL UDC PR (18:48)
[2024-05-07] VITALS (65 sets, daily range): BP systolic 112–127; BP diastolic 56–67; PULSE 90–125; RESP 13–37; TEMP 36.3–37.2; O2SAT 87–98
[2024-05-07 04:49] LABS: Basophils % 0.4 %; Hematocrit 33.6 % (36-47); Lymphocytes # 0.7 10^3/uL (0.8-4.8); Lymphocytes % 14.6 %; Mean Corpuscular HGB Conc 33.3 g/dL (30-55); Mean Corpuscular Hemoglobin 38.5 pg (27-33); Mean Corpuscular Volume 115.5 fl (85-98); Mean Platelet Volume 9.7 fL (7.4-10.4); Monocytes # 0.8 10^3/uL (0.2-0.9); Monocytes % 16.7 %; Neutrophils # 3.14 10^3/uL (1.8-7.7); Neutrophils % 67.2 %; Nucleated Red Blood Cells % 0 %; Platelet Count 89 10^3/cmm (157-399); Red Blood Count 2.91 10^6/uL (3.85-5.65); Red Cell Distribution Width 17.3 % (12.1-15.1); White Blood Count 4.67 10^3/uL (3.29-11.43)
[2024-05-07 05:15] LABS: Alanine Aminotransferase 15 U/L (0-33); Albumin Level 2.5 g/dL (3.5-5.2); Alkaline Phosphatase 76 U/L (35-105); Anion Gap 16.6 (5-19); Aspartate Amino Transferase 39 U/L (0-32); Blood Urea Nitrogen 34 mg/dL (8-23); Calcium 10.3 mg/dL (8.5-10.5); Carbon Dioxide 19 mmol/L (22-29); Chloride 106 mmol/L (98-107); Creatinine Clr Calc Pharmacy 43.8361; Globulin 4.1 g/dL (1.3-4.6); Glucose 101 mg/dL (65-115); Osmolality Calculated 292 mOsm/kg (285-295); Potassium 4.6 mmol/L (3.5-5.1); Sodium 137 mmol/L (136-145); Total Bilirubin 2.1 mg/dL (0.15-1.2); Total Protein 6.6 g/dL (6.6-8.7)
[2024-05-07] MEDS: cefepime 2,000 MG in sodium chloride 0.9% (plus) 50 ML 100 MG IV (05:24)
[2024-05-07] MEDS: pantoprazole 40 mg SDV IVP (08:48)
--- NOTE | 2024-05-07 13:24 | P.PN_ITS ---
Subjective 2 Subjective: Patient has not eaten, she is not fully awake, still obtunded Dehydrated Had multiple bowel movements yesterday No signal improvement in her mentation Family at the bedside, son and daughter Vitals/I&O/Wt Last Vital Signs Temp 98.2 F 05/07/24 12:00 Pulse 97 05/07/24 10:00 Resp 19 H 05/07/24 10:00 BP 115/61 05/07/24 10:00 Pulse Ox 93 05/07/24 10:00 O2 Del Method Room Air 05/06/24 18:15 05/06/24 05/07/24 05/07/24 22:59 06:59 14:59 Intake Total 300 / 457.875 0 / 457.875 0 / 0 Output Total 600 / 600 Balance 300 / 457.875 -600 / -142.125 0 / 0 Weight last 48 hrs Weight 56 kg Weight 56 kg Weight 55.137 kg Weight 55.139 kg Physical Exam 2 Narrative: Patient is obtunded Neuroexam is limited Getting IV fluids, hemodynamically stable Currently on room air Not able to respond to verbal painful stimuli Agonal breathing Urinary Catheter Management: James: Cath Placed During This Visit: yes Reason for Continuing Indwelling Catheter: Accurate Measurement of Urinary Output in Critically Ill Patients Urinary Catheter Date of Insertion: 05/04/24 Data 05/07/24 04:23 05/07/24 04:23 A&P Assessment and plan (1) Hospice care patient: Plan Patient has not shown any signs of improvement, family had decided against thoracentesis at lymph node biopsy, they do not want TPN or PEG tube placement, decided to go with hospice today Son and daughter at the bedside All questions answered to their satisfaction They have decided to go with hospice, will start hospice care in the hospital transfer out of ICU to [facility] They prefer hospice care at home, will try to arrange hospice company arrange hospital bed and then discharge likely by tomorrow Attestations 2 Medical Necessity Statement*: Transfer out of ICU to [facility] on hospice Diagnoses Hospice care patient Z51.5
[2024-05-07] MEDS: morphine 4 mg/mL SDV 1 mL IVP ×2 (16:13→19:52)
[2024-05-07] MEDS: glycopyrrolate 0.2 mg/mL SDV 2 mL 0.200000000000000011 MG IV ×2 (17:55→22:43)
[2024-05-08] VITALS: BP 119/69; PULSE 147; RESP 36; TEMP 36.9; O2SAT 76
[2024-05-08 04:32] VITALS: BMI 22.3
[2024-05-08] MEDS: morphine 4 mg/mL SDV 1 mL IVP ×2 (04:40→20:58)
[2024-05-08] MEDS: glycopyrrolate 0.2 mg/mL SDV 2 mL 0.200000000000000011 MG IV ×2 (04:40→20:58)
[2024-05-08 08:00] VITALS: BP 129/74; PULSE 131; RESP 16; TEMP 36.7; O2SAT 87
[2024-05-08] MEDS: pantoprazole 40 mg SDV IVP (08:08)
--- NOTE | 2024-05-08 11:29 | PM.DCS ---
Discharge Providers Date of Admission: 05/04/24 14:32 Date of Discharge: May 08, 2024 Attending Provider at Admission: Peng Ponce MD Attending Provider at Discharge: Robin Joaquin MD Primary Care Provider: ASIF Mckay Diagnoses at Discharge Discharge Diagnosis (1) Hospice care patient: Status: Acute Reason for Visit Reason for Visit: loss of appetite, general weakness, incoherence Hospital Course Hospital Course 81-year-old female who was admitted for management evaluation of altered mental status, metabolic encephalopathy related to septic shock Source of infection was related to pneumonia, she had worsening right-sided pleural effusion, CT abdomen pelvis showed multiple level lymphadenopathy, she also had supraclavicular lymphadenopathies, I requested thoracentesis and lymph node biopsy Dr. Rodriguez was about to do the procedure went son and the daughter decided against any aggressive intervention including histopathological diagnosis because they would not pursue any treatment afterwards, after multiple discussions they decided to pursue hospice care at home patient has not eaten in weeks, she has remained obtunded, she hardly opens her eyes to communicate, family is well aware that she carries a guarded prognosis. Hospital bed has been arranged she is going home with hospice. Patient carries history of autoimmune hepatitis for which she has been following up with PCP Dr. Kaufman she is not on any steroids, she has decompensated liver cirrhosis with ascites and splenomegaly. Physical Exam Narrative: Patient is obtunded Currently on hospice care, Urinary Catheter Management: James: Cath Placed During This Visit: yes Reason for Continuing Indwelling Catheter: Hospice/Comfort/Palliative Care Urinary Catheter Date of Insertion: 05/04/24 Discharge Data Studies Completed and Pending Completed Studies During Hospitalization Category Date Time Status CT abdomen pelvis wo con [id number] Stat Cat Scan 05/04/24 13:[address] chest abdomen pelvis [CT chest abdpel w/*[id number] Cat Scan 05/05/24 12:14 Completed ] Routine CT head wo con* [id number] Stat Cat Scan 05/04/24 09:57 Completed XR chest 1V portable [id number] Routine Exams 05/04/24 15:47 Completed XR chest 1V portable [id number] Stat Exams 05/04/24 09:57 Com[place] chest [id number] Routine Ultrasound 05/06/24 16:36 Completed US soft tissue/extremity [id number] Routine Ultrasound 05/06/24 16:38 Completed Pending at discharge Category Date Time Status Blood Culture Stat Lab 05/04/24 10:33 Results VBG [Venous Blood Gas] Routine Lab 05/05/24 17:58 Received Radiology Impressions Head CT 05/04/24 09:57 IMPRESSION: No acute intracranial abnormality. Abdomen/Pelvis CT 05/04/24 13:20 IMPRESSION: 1. Rectal fecal impaction. 2. Hepatic cirrhosis and splenomegaly. 3. Partially imaged small right pleural effusion. 4. Large hiatus hernia with most of the stomach located within the chest. Also within the hernia multiple soft tissue densities measuring up to 3.5 cm. These soft tissue densities could represent lymphadenopathy but cannot be further characterized on noncontrast imaging. Consider CT abdomen and pelvis with oral and IV contrast. 5. Cholelithiasis but no evidence of cholecystitis. 6. Calcifications projecting over the distal portal vein. A finding of indeterminate clinical significance and can be further evaluated on the recommended CT abdomen and pelvis with oral and IV contrast. 7. Significantly distended urinary bladder. 8. Bulky bilateral inguinal and pelvic sidewall/iliac chain lymphadenopathy. Consider lymphoma. Chest X-Ray 05/04/24 15:47 IMPRESSION: The new right subclavian central venous catheter is in good position. No pneumothorax. Chest/Abdomen/Pelvis CT 05/05/24 12:14 IMPRESSION: 1. Bulky lymphadenopathy in the lower cervical and supraclavicular regions, bilateral axilla and posterior mediastinum. The findings are concerning for lymphoma. 2. There is now a large right pleural effusion. The right pleural effusion was significantly smaller on yesterday's exam. 3. Large hiatus hernia with a significant portion of the stomach located within the chest. The soft tissue mass within the hiatus hernia seen on noncontrast imaging yesterday appears to represent bulky gastrohepatic lymphadenopathy dragged into the chest. 4. Extensive calcified coronary artery disease. IMPRESSION: 1. Bulky lymphadenopathy in the gastrohepatic region, breezy hepatis, retroperitoneum, pelvic sidewall and bilateral inguinal regions. The findings are concerning for lymphoma. 2. Large hiatus hernia. Please see CT chest report. 3. Significant rectal fecal impaction. 4. Hepatic cirrhosis and splenomegaly. 5. Cholelithiasis but no suggestion of cholecystitis. 6. Small volume ascites and mild mesenteric edema. 7. Partial thrombosis of the portal vein. 8. Query mild mural thickening of the small bowel. Chest Ultrasound 05/06/24 16:36 IMPRESSION: Moderate size RIGHT pleural effusion. Soft Tissue Ultrasound 05/06/24 16:38 IMPRESSION: See above Laboratory Results WBC 4.67 10^3/uL (3.29-11.43) 05/07/24 04:23 RBC 2.91 10^6/uL (3.85-5.65) L 05/07/24 04:23 Hgb 11.20 g/dL (11.27-16.99) L 05/07/24 04:23 Hct 33.6 % (36-47) L 05/07/24 04:23 MCV 115.5 fl (85-98) H 05/07/24 04:23 MCH 38.5 pg (27-33) H 05/07/24 04:23 MCHC 33.3 g/dL (30-55) 05/07/24 04:23 RDW 17.3 % (12.1-15.1) H 05/07/24 04:23 Plt Count 89 10^3/cmm (157-399) L 05/07/24 04:23 MPV 9.7 fL (7.4-10.4) 05/07/24 04:23 Neut % (Auto) 67.2 % 05/07/24 04:23 Lymph % (Auto) 14.6 % 05/07/24 04:23 Morrill % (Auto) 16.7 % 05/07/24 04:23 Eos % (Auto) 0.0 % 05/07/24 04:23 Baso % (Auto) 0.4 % 05/07/24 04:23 Neut # (Auto) 3.14 10^3/uL (1.8-7.7) 05/07/24 04:23 Lymph # (Auto) 0.7 10^3/uL (0.8-4.8) L 05/07/24 04:23 Morrill # (Auto) 0.8 10^3/uL (0.2-0.9) 05/07/24 04:23 Eos # (Auto) 0.0 10^3/uL (0.0-0.8) 05/07/24 04:23 Baso # (Auto) 0.0 10^3/uL (0.0-0.1) 05/07/24 04:23 Nucleated RBC % (auto) 0 % 05/07/24 04:23 Nucleated RBCs # 0.0 /100WBC 05/07/24 04:23 PT 16.30 SECONDS (12.1-14.9) H 05/06/24 11:28 INR 1.27 (0.8-1.2) H 05/06/24 11:28 APTT 64.7 SECONDS (23.9-36.7) H 05/06/24 11:28 Fibrinogen 173 mg/dL (174-498) L 05/06/24 11:28 Sodium 137 mmol/L (136-145) 05/07/24 04:23 Potassium 4.6 mmol/L (3.5-5.1) 05/07/24 04:23 Chloride 106 mmol/L (98-107) 05/07/24 04:23 Carbon Dioxide 19 mmol/L (22-29) L 05/07/24 04:23 Anion Gap 16.6 (5-19) 05/07/24 04:23 BUN 34 mg/dL (8-23) H 05/07/24 04:23 Creatinine 0.8 mg/dL (0.5-0.9) 05/07/24 04:23 GFR Calculation Not Reportable 05/07/24 04:23 Glucose 101 mg/dL (65-115) 05/07/24 04:23 Calculated Osmolality 292 mOsm/kg (285-295) 05/07/24 04:23 Lactic Acid 3.0 mmol/L (0.5-2.2) H 05/04/24 10:35 Lactic Acid (Sepsis) 2.8 mmol/L (0.5-2.2) H 05/04/24 13:37 Calcium 10.3 mg/dL (8.5-10.5) 05/07/24 04:23 Phosphorus 3.5 mg/dL (2.5-4.5) 05/06/24 03:45 Magnesium 2.1 mg/dL (1.7-2.3) 05/06/24 03:45 Total Bilirubin 2.1 mg/dL (0.15-1.2) H 05/07/24 04:23 AST 39 U/L (0-32) H 05/07/24 04:23 ALT 15 U/L (0-33) 05/07/24 04:23 Alkaline Phosphatase 76 U/L (35-105) 05/07/24 04:23 Ammonia 44 umol/L (11-51) 05/06/24 03:45 Troponin T Baseline 10 ng/L (0-10) 05/04/24 10:35 Troponin T 120 Minute 9.49 ng/L (0-10) 05/04/24 12:34 Delta Troponin T -0.51 ABS# (0-10) L 05/04/24 12:34 Troponin T Hi Sens 6Hr 9.83 ng/L (0-10) 05/04/24 17:31 Troponin T Hi Sens 6Hr Delta -0.17 ng/L (0-12) L 05/04/24 17:31 C-Reactive Protein 26.6 mg/L (0.0-4.9) H 05/04/24 10:35 Total Protein 6.6 g/dL (6.6-8.7) 05/07/24 04:23 Albumin 2.5 g/dL (3.5-5.2) L 05/07/24 04:23 Globulin 4.1 g/dL (1.3-4.6) 05/07/24 04:23 Vitamin B12 > 2000 pg/mL (232-1245) H 05/05/24 03:56 Procalcitonin 0.15 ng/mL (0-0.5) 05/06/24 03:45 TSH 3.39 uIU/mL (0.27-4.20) 05/04/24 19:30 Urine Color Yellow (Yellow) 05/04/24 13:04 Urine Appearance Clear (CLEAR) 05/04/24 13:04 Urine pH 6 (5-7) 05/04/24 13:04 Ur Specific Crawford 1.020 (1.005-1.030) 05/04/24 13:04 Urine Protein Neg (Negative) 05/04/24 13:04 Urine Glucose (UA) Norm (Normal) 05/04/24 13:04 Urine Ketones Negative (Negative) 05/04/24 13:04 Urine Blood Neg (Negative) 05/04/24 13:04 Urine Nitrate Negative (Negative) 05/04/24 13:04 Urine Bilirubin Neg (Negative) 05/04/24 13:04 Urine Urobilinogen 4 mg/dL (Negative) H 05/04/24 13:04 Ur Leukocyte Esterase Negative (Negative) 05/04/24 13:04 MRSA (PCR) Not detected (NOT DETECTED) 05/04/24 17:55 Vitals Last Vital Signs Temp 98.1 F 05/08/24 08:00 Pulse 131 H 05/08/24 08:00 Resp 16 05/08/24 08:00 BP 129/74 05/08/24 08:00 Pulse Ox 87 L 05/08/24 08:00 O2 Del Method Room Air 05/08/24 08:00 Discharge Plan Discharge Patient Disposition: Home Condition: Stable Prescriptions: Discontinued pantoprazole 40 mg tablet,delayed release (DR/EC) 40 mg PO BID 42 Days Qty: 84 0RF cholecalciferol (vitamin D3) 1,250 mcg (50,000 unit) capsule 50,000 unit PO .weekly Qty: 12 0RF furosemide [Lasix] 20 mg tablet 40 mg PO DAILY Qty: 90 0RF metoprolol succinate 50 mg tablet extended release 24 hr 50 mg PO DAILY Qty: 90 3RF spironolactone 50 mg tablet 100 mg PO DAILY Qty: 90 0RF multivitamin Tablet 1 tab PO QAM Colace 100 mg Capsule 100 mg PO DAILY azathioprine 50 mg tablet 50 mg PO DAILY levothyroxine 25 mcg tablet 25 mcg PO DAILY Discharge Orders: Discharge Order (Routine); Ordered 05/08/24 Ordered By: Robin Joaquin Referrals: Jenny Gamble FNP [Primary Care Provider] - Patient Instructions: Altered Mental Status (ED), Opioid Safety, Pain Management Discharge Attestations Time Spent in Discharge Care*: greater than 30 min Quality Metrics Clinical Quality Measures [ No reported AMI, CVA or VTE this stay] Coding Level of Care Code Acute Code for Chg Fwd Diagnoses Hospice care patient Z51.5
[2024-05-08 11:41] VITALS: BP 112/65; PULSE 136; RESP 17; TEMP 38.5; O2SAT 87
--- NOTE | 2024-05-08 15:13 | PC.SOCIAL ---
IMM updated IMM dated and copy given to patient and placed in chart
[2024-05-08 15:59] VITALS: TEMP 37.8
--- NOTE | 2024-05-08 17:41 | PC.NURSE ---
[facility] ambulance has been notified of patient transport. They are behind on calls at this time. Gregory will call with ETA, but there is a possibility that patient will have to stay another night. Dr. Joaquin and family notified.
--- NOTE | 2024-05-08 17:51 | PC.SOCIAL ---
OTIS Claudio reports that she called [facility] and [facility] and neither can transport home. Called [facility]; spoke with Lluvia, she checks with a construction engineering manager who states that they cannot because they would be too far out of their service area.
[2024-05-08 20:00] VITALS: BP 139/80; PULSE 128; RESP 20; TEMP 37.3; O2SAT 84
[2024-05-08 20:58] VITALS: RESP 18
[2024-05-09] MEDS: morphine 4 mg/mL SDV 1 mL IVP (09:05)
== END 2024-05-09 09:30 | disposition hospice, inpatient (51) | DRG 871 ==
LOC: ER 14:36 → ICU 15:43 → MEDSURG 05-07 17:15
PROVIDERS: Admitting Provider Internal Medicine; Emergency Provider Family Medicine; PCP Nurse Practitioner Family; Visit Provider Internal Medicine
DX: A41.9 Sepsis, unspecified organism (principal); J18.9 Pneumonia, unspecified organism; R65.21 Severe sepsis with septic shock; G93.40 Encephalopathy, unspecified; J90 Pleural effusion, not elsewhere classified; K76.6 Portal hypertension; R59.0 Localized enlarged lymph nodes; E86.0 Dehydration; K56.41 Fecal impaction; W19.XXXA Unspecified fall, initial encounter; N28.9 Disorder of kidney and ureter, unspecified; Z66 Do not resuscitate; D69.6 Thrombocytopenia, unspecified; Z51.5 Encounter for palliative care; K75.4 Autoimmune hepatitis; K74.69 Other cirrhosis of liver; I25.10 Atherosclerotic heart disease of native coronary artery without angina pectoris; I10 Essential (primary) hypertension; E03.9 Hypothyroidism, unspecified; E78.5 Hyperlipidemia, unspecified; K21.9 Gastro-esophageal reflux disease without esophagitis; R16.1 Splenomegaly, not elsewhere classified
CPT/HCPCS: 36415; 36592; 51702; 70450; 71045; 71260; 74176; 74177; 76604; 76882; 80053; 81003; 82140; 82607; 82803; 83605; 83735; 84100; 84145; 84443; 84484; 85025; 85049; 85384; 85610; 85730; 86140; 87040; 87641; 93005; 94762; 96365; 96372; 96374; 96376; 99285; C9113; J0692; J0696; J1170; J1644; J2270; J3370; J3490; J7030; J7050; Q9967